=== PATIENT | female | born 1955 | race Caucasian/White ===

== ENCOUNTER → 2016-09-18 | Outpatient (CLI) | payer OTHER ==
[~2016-09-18] VITALS: Ht 162.6 cm; Wt 89.4 kg
[~2016-09-18] MED LIST: ALEVE220 M1 PO; AMARYL4 MG PO; ASPIRIN81 M2 PO; CHOLESTYRAMI239.4 GM PO; CLARITIN10 M3 PO; COZAAR 50 MG TA50 M2 PO; FENOFIBRATE160 MG PO; FLONASE 0.05%50 MCG NASAL; GLUCOPHAGE XR750 MG PO; KRILL OIL 5001 EACH PO; LIPITOR 20 MG T20 M1 PO; NASALCROM40 MG/1 ML NS; NORVASC5 MG PO; PIOGLITAZONE15 MG PO; TOPROL XL100 MG PO; VICTOZA0.6 MG/0.1 SUBQ; VITAMIN B-12500 MCG PO; WOMEN'S DAILY1 EACH PO; ZETIA10 MG PO
--- NOTE | ~2016-09-18 | CATHLAB ---
[facility] [address] [place] [address] INVASIVE PROCEDURE REPORT Name: GIOVANNI BRYANT ANDRZEJ Room #: REG Massiel#: [id number] Admission: 09/18/16 Attend Phys: Liam Llanos, Discharge: Date of : 51 Date of Service: 09/18/16 0949 Report #: [id number] THIS REPORT FOR: //name// CC: Dr. Harish Llanos PROCEDURES: Left ventriculography, coronary angiography, attempted PTCA of diagonal branch through an LAD stent-senior care. DESCRIPTION OF PROCEDURE: The patient brought to the catheterization lab in stable condition, the nuclear test suggested a moderate area of anterior lateral wall ischemia. The right groin prepped and draped in sterile manner. 1% Xylocaine was used for local anesthesia. Versed was given for conscious sedation, a 6-Italian sheath, right femoral artery over the wire. Initially straight pigtail catheter performed a single HINOJOSA arteriogram and AP aortogram. FL4 left coronary system, FR4 right coronary system. There is evidence of somewhat of a codominant system here the eccentric the right had a some of the inferior wall had a 60% lesion. The LAD mildly diseased. Previously placed stent was widely patent with 20% residual stenosis and there was a diagonal branch, which was moderate in size. It came off of this stent, was jailed by the stent, had an eccentric 90% proximal lesion. Circumflex was large and predominantly the dominant vessel with mild irregularities. I utilized a 4.0 EBU guide, heparin bolus and attempted multiple wires and loose wire, Whisper wire to cross through the stent into this diagonal branch. These were unsuccessful, relatively long attempt was made here, but no disruption of the LAD, brisk flow maintained on the diagonal branch. The risks, benefits is probably not in favor to continue on here. It is a small to moderate size diagonal distribution. She is relatively asymptomatic and would treat this medically. Vascular sheath was removed with a Mynx closure device. The patient is hemodynamically stable and pain free. We will be observed in our CV holding area for 4-6 hours and discharge protocol, holding metformin for 48 hours. No lifting for 48 hours. No lying in tub, Jacuzzi or Santos for a week. HEMODYNAMICS: Aortic 134/70, LV 136/6. IMPRESSION: 1. Left main, free of disease. 2. LAD extends around the apex, mild in-stent restenosis in the proximal LAD. 3. An eccentric 90% lesion in the jailed diagonal branch with a failed attempted angioplasty, unable to cross, I suspect this after 13 years. 4. Circumflex marginal was least codominant, predominantly the dominant vessel with mild disease in the circumflex and OM system. 5. Smaller codominant right, eccentric 60-70% proximal lesion, supplying minimal left ventricle. 6. Normal left ventricular size and systolic function, EF 60%. 7. Abdominal aorta is intact. Renal arteries and iliacs widely patent. [facility] [address] [place] [address] INVASIVE PROCEDURE REPORT Name: GIOVANNI BRYANT Room #: REG CL Massiel#: [id number] Admission: 09/18/16 Attend Phys: Liam Llanos, Discharge: Date of : 51 Date of Service: 09/18/16 0949 Report #: [id number] RECOMMENDATIONS: Continue aggressive risk factor modification as stated above. Restart home medications with the exception of metformin. We will hold for 48 hours. One could consider the addition of long acting nitrate, however, she is relatively asymptomatic, this was the findings on the nuclear stress test. We will have some close followup. No change in medications at this time. By: [id number] Liam Llanos MD, FACC /nt
[2016-09-18 07:21] VITALS: BP 137/76
[2016-09-18 07:35] LABS: HEMATOCRIT 38.5 % (37.0-47.0); HEMOGLOBIN 13.1 gm/dL (12.0-15.0); MCH 29.8 pg (26.0-34.0); MCV 87.7 fL (80.0-100.0); RBC 4.4 mil/uL (4.20-5.00); RDW 13.8 % (10.5-14.5); WBC 5.4 thou/uL (4.0-11.0)
[2016-09-18 07:45] LABS: CALCIUM 9.4 mg/dL (8.5-10.1); CREATININE 0.7 mg/dL (0.6-1.3); POTASSIUM 4.2 mmol/L (3.5-5.1)
== END ==
LOC: CATH 06:51
PROVIDERS: Internal Medicine Cardiovascular Disease
DX: I25.10 Atherosclerotic heart disease of native coronary artery without angina pectoris (principal); I10 Essential (primary) hypertension; E11.9 Type 2 diabetes mellitus without complications